=== PATIENT | female | born 1990 | race Caucasian/White ===

== ENCOUNTER 2021-12-26 05:55 | Day surgery (SDC) | payer OTHER | END 2021-12-26 14:25 | disposition home or self-care (01) | LOC: CIR.AMB 05:55 | PROVIDERS: ATTEND Obstetrics & Gynecology | DX: N95.0 Postmenopausal bleeding (principal); N80.0 Endometriosis of uterus; Z20.822 Contact with and (suspected) exposure to COVID-19; Z86.16 Personal history of COVID-19 ==

== ENCOUNTER 2024-12-22 07:19 | Inpatient (IN) | payer OTHER ==
[~2024-12-22] VITALS: Ht 157.5 cm; Wt 55.3 kg
--- NOTE | 2024-12-22 07:31 | NUR ---
PTE ALERTA Y ORIENTADO X3 REFIERE TENER DOLOR ABDOMINAL DESDE HACE CARLO SEMANA MAS INDICA QUE LOVELL DR. LILLY DOWNING LA ENVIO A ER SI DOLOR PERSISTE Y SE LE NOTIQUE CUANDO PTE JOCELYN EN ER. SE RADHA SV MAS SE UBICA.
[2024-12-22] MEDS ORDERED: 0.9 % SODIUM CHLORIDE 1,000 ML IV STA (08:27)
[2024-12-22 11:27] LABS: BASO % 1.0 % (0.1-1.2); EOS # 0.30 (0.04-0.54); EOS % 4.9 % (0.7-7.0); LYMPH # 2.33 (1.18-3.74); LYMPH % 38.4 % (19.3-53.1); MEAN PLATELET VOLUME 11.90 fl (9.4-12.4); MONO # 0.31 (0.24-0.82); MONO % 5.1 % (4.7-12.5); NEUT # 3.06 (1.56-6.13); NEUT % 50.4 % (34.0-71.1); RED CELL DISTRIBUTION WIDTH 11.6 % (11.6-14.4)
[2024-12-22 11:35] LABS: COVID-19 AG NEGATIVE (NEGATIVE)
[2024-12-22 11:56] LABS: INR 1.05
[2024-12-22 12:10] LABS: BUN CREA RATIO 11.0 (7.0-25.0); CREATININE SERUM 0.7 mg/dL (0.55-1.02); GFR 95.79; GLUCOSE FASTING 77.0 mg/dL (65-100); OSMOLALITY SERUM 280.0 MOSM/KG (275-295)
[2024-12-22] MEDS ORDERED: CEFAZOLIN SODIUM 1,000 MG VIAL IV ONE (14:00)
[2024-12-22] MEDS ORDERED: POVIDONE-IODINE 118 ML BOTT TOP ONE (14:00)
[2024-12-22] MEDS ORDERED: MORPHINE SULFATE 4 MG/ML VIAL IV ONE ×2 (15:25→15:55)
[2024-12-22] MEDS ORDERED: FAMOTIDINE/PF 20 MG/2 ML VIAL IV ONE (20:45)
[2024-12-22 21:46] LABS: BASO % 0.4 % (0.1-1.2); EOS # 0.02 (0.04-0.54); EOS % 0.2 % (0.7-7.0); LYMPH # 0.86 (1.18-3.74); LYMPH % 7.7 % (19.3-53.1); MEAN PLATELET VOLUME 12.20 fl (9.4-12.4); MONO # 0.31 (0.24-0.82); MONO % 2.8 % (4.7-12.5); NEUT # 9.98 (1.56-6.13); NEUT % 88.6 % (34.0-71.1); RED CELL DISTRIBUTION WIDTH 11.5 % (11.6-14.4)
[2024-12-22 21:47] LABS: URINE APPEARANCE Clear; URINE BILIRRUBIN Negative (NEGATIVE); URINE BLOOD Large; URINE COLOR Orange; URINE GLUCOSE Negative (NEGATIVE); URINE LEUKOCYTE Trace; URINE NITRATE Negative; URINE PROTEIN 30 (NEGATIVE); URINE UROBILINOGEN 0.2 E.U./dl
[2024-12-22 21:48] LABS: URINE BACTERIA 26.3 uL (0.0-1933); URINE EPITHELIAL CELLS 17.6 uL (0.0-38.8); URINE RBC 2976.5 uL (0.0-20.8); URINE WBC 31.8 uL (0.0-23.2)
[2024-12-22 21:50] LABS: URINE CAST 0.43 uL (0.0-1.40); URINE KETONE 80 (NEGATIVE)
[2024-12-23 14:03] VITALS: BP 109/66; O2SAT 100
== END 2024-12-23 10:45 | disposition home or self-care (01) | DRG 743 ==
LOC: ER 07:40 → O/R 08:39 → OB/GYN 08:39 → O/R 11:34
PROVIDERS: Emergency Medicine; ADMIT Obstetrics & Gynecology; ATTEND Obstetrics & Gynecology
PROC: 0DNW4ZZ Release Peritoneum, Percutaneous Endoscopic Approach (ICD-10-PCS; 2024-12-22)
PROC: 0UPD4HZ Removal of Contraceptive Device from Uterus and Cervix, Percutaneous Endoscopic Approach (ICD-10-PCS; 2024-12-22)
PROC: 0UT74ZZ Resection of Bilateral Fallopian Tubes, Percutaneous Endoscopic Approach (ICD-10-PCS; principal; 2024-12-22 14:45)
DX: D28.2 Benign neoplasm of uterine tubes and ligaments (principal); N83.209 Unspecified ovarian cyst, unspecified side; R10.2 Pelvic and perineal pain; Z30.432 Encounter for removal of intrauterine contraceptive device; N73.6 Female pelvic peritoneal adhesions (postinfective)